=== PATIENT | male | born 1995 | race Caucasian/White ===

== ENCOUNTER 2017-09-03 22:05 | Emergency (ER) | payer OTHER ==
[2017-09-03 22:43] VITALS: TEMP 99.1
--- NOTE | 2017-09-03 22:46 | ED.PDOC ---
History of Present Illness - General Chief Complaint: General Stated Complaint: exposed to STD Time Seen by Provider: 09/03/17 22:40 Source: patient Exam Limitations: no limitations - History of Present Illness Initial Comments: the patient is a 22-year-old male presenting to emergency room secondary to concern for a chlamydial infection. The patient has been sexually active with his girlfriend who did just have a confirmed diagnosis in the hospital of a chlamydial infection. He is currently asymptomatic. He has not had any chlamydial infection before that he knows of. No history of any other STDs. No drug allergies. No significant past medical history otherwise. Timing/Duration: unsure Severity: mild Home Medications: Ambulatory Orders Doxycycline Hyclate 100 mg PO BID #14 cap 09/03/17 Review of Systems - Review of Systems Constitutional: States: no symptoms reported EENTM: States: no symptoms reported Respiratory: States: no symptoms reported Cardiology: States: no symptoms reported Gastrointestinal/Abdominal: States: no symptoms reported Genitourinary: States: no symptoms reported Musculoskeletal: States: no symptoms reported Skin: States: no symptoms reported Neurological: States: no symptoms reported Endocrine: States: no symptoms reported Hematologic/Lymphatic: States: no symptoms reported All other Systems: No Change from Baseline Past Medical History (General) - Patient Medical History Hx Diabetes: No Surgical History: no surgical history - Vaccination History Hx Influenza Vaccination: No - Triage Comment ED Triage Comment: girlfriend was positive and treated for climydia, not sure if he need treatment. Denies any symptoms at present Family Medical History - Family History Father Family History: Unknown Physical Exam - Physical Exam General Appearance: Alert, Comfortable, No apparent distress Eye Exam: bilateral normal Ears, Nose, Throat: hearing grossly normal Respiratory: no respiratory distress, no accessory muscle use Cardiovascular/Chest: normal peripheral pulses, no edema Peripheral Pulses: radial,right: 2+, radial,left: 2+ Rectal Exam: deferred - patient reports no penile discharge and no external lesions. 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 since his partner's case has been confirmed, we will go ahead and treat presumptively with doxycycline twice daily for 7 days. He needs to take this medication with food to prevent stomach upset. ER warnings were given for any worsening or development of any new symptoms. He should abstain from sex for at least 2 weeks. I do recommend that he see family planning or the public Health Department for full STD testing. Departure - Departure Clinical Impression: Exposure to chlamydia Disposition: Discharge to Home or Self Care Condition: Fair Departure Forms: ED Discharge - Pt. Copy, Patient Portal Self Enrollment Instructions: DI for Chlamydia Diet: regular diet Activity: increase activity as tolerated Prescriptions: Doxycycline Hyclate 100 mg PO BID #14 cap Home Medications: Ambulatory Orders Doxycycline Hyclate 100 mg PO BID #14 cap 09/03/17 Additional Instructions: the patient is a 22-year-old male presenting to the emergency room secondary to concern for known exposure to another patient with a chlamydial infection. since his partner's case has been confirmed, we will go ahead and treat presumptively with doxycycline twice daily for 7 days. He needs to take this medication with food to prevent stomach upset. ER warnings were given for any worsening or development of any new symptoms. He should abstain from sex for at least 2 weeks. I do recommend that he see family planning or the public Health Department for full STD testing.
[2017-09-03 23:00] VITALS: BP 148/84; O2SAT 97
== END 2017-09-03 23:00 | disposition home or self-care (01) ==
LOC: ER 22:05
DX: Z20.2 Contact with and (suspected) exposure to infections with a predominantly sexual mode of transmission (principal)